=== PATIENT | male | born 1950 | race Hispanic/Latino ===

== ENCOUNTER 2018-02-14 06:51 | Day surgery (SDC) | payer OTHER ==
[~2018-02-14] VITALS: Ht 30.5 cm; Wt 0.5 kg
== END 2018-02-14 08:43 | disposition home or self-care (01) ==
LOC: OR 06:51
PROC: 08RJ3JZ Replacement of Right Lens with Synthetic Substitute, Percutaneous Approach (ICD-10-PCS; principal; 2018-02-14)
DX: H25.811 Combined forms of age-related cataract, right eye (principal)
CPT/HCPCS: 66984; J2250; V2632

== ENCOUNTER 2018-03-21 06:42 | Day surgery (SDC) | payer OTHER | END 2018-03-21 09:00 | disposition home or self-care (01) | LOC: OR 06:42 | PROC: 08RK3JZ Replacement of Left Lens with Synthetic Substitute, Percutaneous Approach (ICD-10-PCS; principal; 2018-03-21) | DX: H25.812 Combined forms of age-related cataract, left eye (principal) | CPT/HCPCS: 66984; V2632 ==